=== PATIENT | male | born 1960 | race Caucasian/White ===

== ENCOUNTER 2022-10-25 13:03 | Emergency (ER) | payer SELFPAY ==
[~2022-10-25] VITALS: Ht 177.8 cm; Wt 107.0 kg
[2022-10-25] MEDS ORDERED: AUGMENTIN 500500 M1 PO (15:23)
== END 2022-10-25 15:50 | disposition home or self-care (01) ==
LOC: ED 13:03
DX: J32.9 Chronic sinusitis, unspecified (principal); Z91.041 Radiographic dye allergy status; Z20.822 Contact with and (suspected) exposure to COVID-19